=== PATIENT | female | born 1970 | race Caucasian/White ===

== ENCOUNTER 2020-11-10 22:42 | Emergency (ER) | payer OTHER ==
[2020-11-10] MEDS ORDERED: Atropine 0.1 MG/ML 10 ML Syringe ONE ×2 (23:00)
[2020-11-10] MEDS ORDERED: Sodium Bicarbonate 8.4% 50 MEQ/50 ML Syringe ONE ×3 (23:00→23:55)
[2020-11-10] MEDS ORDERED: Norepinephrine 4 MG/4 ML SDV ONE (23:00)
[2020-11-10] MEDS ORDERED: EPINEPHrine 1:10,000 1 MG/10 ML Syringe ONE ×3 (23:00)
[2020-11-10] MEDS ORDERED: 5% Dextrose in Water 250 ML Bag ONE (23:00)
[2020-11-10] MEDS ORDERED: Sodium Chloride 0.9% 10 ML Syringe ONE (23:00)
[2020-11-10] MEDS ORDERED: Succinylcholine 200 MG/10 ML MDV ONE (23:00)
[2020-11-10] MEDS ORDERED: Etomidate 2 MG/ML 20 ML SDV IVPUSH ONE (23:00)
[2020-11-10] MEDS ORDERED: Sodium Chloride 0.9% 10 ML Syringe FLUSH PRN (23:04)
--- NOTE | 2020-11-10 23:06 | EDM.PDOC ---
ED HPI GENERAL MEDICAL PROBLEM - General Chief Complaint: Syncope Stated Complaint: [facility] Time Seen by Provider: 11/10/20 23:03 Source of Information: Reports: Patient, RN Notes Reviewed - History of Present Illness INITIAL COMMENTS - FREE TEXT/NARRATIVE: 49 yr old female brought to ED unresponsive in heart block. Ambulance was initially called to [facility] having had a "seizure, unresponsive and not breathing". Upon their arrival patient was unresponsive, breathing but in apparent heart block with V response in the 20's and 30's. They had applied transthoracic pacer with transthoracic pacing, unclear capture with bentley pulse at time of intial exam on arrival to ED. Pt unresponsive on arrival to ED but breathing spontaneously. No further hx known at time of patient arrival. I did obtain subsequent hx from her . She, her and family are on vacation with primary residence back in [place], [place]. She has hx of "diastolic heart failure" per on multiple medications for that. This was diagnosed about 1 yr ago. She had been feeling fine all day today. They had done some mild hiking enjoying visiting the [facility]. She had been e ating and drinking OK. No reported chest pain, dyspnea, abd pain, nausea or vomiting. She was sitting, had been playing a game with and children when she just suddenly "Passed out" Her hands and arms cliniched in front of her and their was some mild jerking and she than became unresponsive. He imediately called 911, she did not seem to be breathing so he did start CPR. She than was breathing upon EMS arrival. No known seizure hx. No known hx of other medical problems. - Related Data Allergies Allergy/AdvReac Type Severity Reaction Status Date / Time Penicillins Allergy Other Verified 11/11/20 01:47 Home Meds: Home Meds Furosemide [Lasix] 40 mg PO BID 11/11/20 [History] Losartan [Cozaar] 100 mg PO DAILY 11/11/20 [History] Potassium Chloride [Klor-Con M20] 20 meq PO BID 11/11/20 [History] QUEtiapine [SEROquel] 200 mg PO DAILY 11/11/20 [History] Spironolactone [Aldactone] 12.5 mg PO DAILY 11/11/20 [History] carvediloL [Carvedilol] 12.5 mg PO BID 11/11/20 [History] ED ROS GENERAL - Review of Systems Review Of Systems: Unable To Obtain Reason Not Obtained: Altered mental status ED EXAM, GENERAL - Physical Exam Exam: See Below Exam Limited By: Altered Mental Status General Appearance: Other (unresponsive verbally or to pain) Eye Exam: Bilateral Eye: Other (pupils moderately dilated) Ears: Normal External Exam Ear Exam: Bilateral Ear: Auricle Normal Nose: Normal Inspection Throat/Mouth: Normal Inspection Head: Atraumatic Neck: Other (No JVD) Respiratory/Chest: No: Rales, Rhonchi, Wheezing Cardiovascular: Bradycardia GI/Abdominal: No: Distended Extremities: No Pedal Edema. No: Increased Warmth, Redness Neurological: Other (unresponsive to verbal or to pain) Skin Exam: Cool, Other (slight mottling upper chest, nail beds pink, cap refill less than 2 seconds). No: Rash #1 Interpretation EKG Date: 11/10/20 Rhythm: Other (complete heart block) Rate (Beats/Min): 31 QRS: Other (wide complex, q waves inf leads) ST-T: Other (large depressed t waves inf. leads and V4-6) Course - Vital Signs Last Recorded V/S: Last Vital Signs Temp 96.8 F L 11/11/20 01:35 Pulse 10 L 11/11/20 01:35 Resp 10 L 11/11/20 01:35 BP Pulse Ox 66 L 11/11/20 01:35 - Orders/Labs/Meds Orders: Active Orders 24 hr Category Date Time Status Peripheral IV Care [RC] . DIRECTED Care 11/10/20 23:05 Active Chest 1V Frontal [CR] Stat Exams 11/10/20 23:05 Taken Peripheral IV Insertion Adult [OM.PC] Stat Oth 11/10/20 23:05 Ordered Labs: Laboratory Tests 11/10/20 11/10/20 11/10/20 Range/Units 22:52 22:52 22:52 WBC 7.99 (3.98-10.04) K/mm3 RBC 4.58 (3.98-5.22) M/mm3 Hgb 13.6 (11.2-15.7) gm/dl Hct 41.4 (34.1-44.9) % MCV 90.4 (79.4-94.8) fl MCH 29.7 (25.6-32.2) pg MCHC 32.9 (32.2-35.5) g/dl RDW Std Deviation 42.8 (36.4-46.3) fL Plt Count 158 L (182-369) K/mm3 MPV 11.3 (9.4-12.3) fl Neut % (Auto) 43.1 (34.0-71.1) % Lymph % (Auto) 47.7 (19.3-51.7) % [place] % (Auto) 5.9 (4.7-12.5) % Eos % (Auto) 2.4 (0.7-5.8) Baso % (Auto) 0.3 (0.1-1.2) % Neut # (Auto) 3.45 (1.56-6.13) K/mm3 Lymph # (Auto) 3.81 H (1.18-3.74) K/mm3 [place] # (Auto) 0.47 H (0.24-0.36) K/mm3 Eos # (Auto) 0.19 (0.04-0.36) K/mm3 Baso # (Auto) 0.02 (0.01-0.08) K/mm3 PT 11.0 (9.7-12.0) SECONDS INR 1.03 APTT 24.6 (21.7-31.4) SECONDS Puncture Site ABG pH (7.35-7.45) ABG pCO2 (35.0-45.0) mmHg ABG pO2 (80.0-100.0) mmHg ABG HCO3 (22.0-26.0) meq/L ABG O2 Saturation (96.0-97.0) % ABG Base Excess (-2-2.0) A-a Gradient mmHg O2 Delivery Device Oxygen Flow Rate FiO2 (21.00-100.00) % Sodium 145 (136-145) mEq/L Potassium 4.2 (3.5-5.1) mEq/L Chloride 108 H (98-107) mEq/L Carbon Dioxide 18 L (21-32) mEq/L Anion Gap 23.2 H (5-15) BUN 22 H (7-18) mg/dL Creatinine 1.3 H (0.55-1.02) mg/dL Est Cr Clr Drug Dosing TNP Estimated GFR (MDRD) 44 (>60) mL/min BUN/Creatinine Ratio 16.9 (14-18) Glucose 190 H (70-99) mg/dL Lactic Acid (0.4-2.0) mmol/L Calcium 8.6 (8.5-10.1) mg/dL Total Bilirubin 0.5 (0.2-1.0) mg/dL AST 34 (15-37) U/L ALT 34 (14-59) U/L Alkaline Phosphatase 58 (46-116) U/L Troponin I (0.00-0.056) ng/mL Total Protein 7.4 (6.4-8.2) g/dl Albumin 3.9 (3.4-5.0) g/dl Globulin 3.5 gm/dL Albumin/Globulin Ratio 1.1 (1-2) Amylase 61 (25-115) U/L Ethyl Alcohol 0.00 (0.00) gm% 11/10/20 11/10/20 11/11/20 Range/Units 22:52 22:52 00:00 WBC (3.98-10.04) K/mm3 RBC (3.98-5.22) M/mm3 Hgb (11.2-15.7) gm/dl Hct (34.1-44.9) % MCV (79.4-94.8) fl MCH (25.6-32.2) pg MCHC (32.2-35.5) g/dl RDW Std Deviation (36.4-46.3) fL Plt Count (182-369) K/mm3 MPV (9.4-12.3) fl Neut % (Auto) (34.0-71.1) % Lymph % (Auto) (19.3-51.7) % [place] % (Auto) (4.7-12.5) % Eos % (Auto) (0.7-5.8) Baso % (Auto) (0.1-1.2) % Neut # (Auto) (1.56-6.13) K/mm3 Lymph # (Auto) (1.18-3.74) K/mm3 [place] # (Auto) (0.24-0.36) K/mm3 Eos # (Auto) (0.04-0.36) K/mm3 Baso # (Auto) (0.01-0.08) K/mm3 PT (9.7-12.0) SECONDS INR APTT (21.7-31.4) SECONDS Puncture Site Lt radial ABG pH 7.03 L* (7.35-7.45) ABG pCO2 38.8 (35.0-45.0) mmHg ABG pO2 490.0 H* (80.0-100.0) mmHg ABG HCO3 9.8 L (22.0-26.0) meq/L ABG O2 Saturation 99.2 H (96.0-97.0) % ABG Base Excess -20.7 L (-2-2.0) A-a Gradient 174 mmHg O2 Delivery Device Hand ventilated Oxygen Flow Rate 15.0 FiO2 100.00 (21.00-100.00) % Sodium (136-145) mEq/L Potassium (3.5-5.1) mEq/L Chloride (98-107) mEq/L Carbon Dioxide (21-32) mEq/L Anion Gap (5-15) BUN (7-18) mg/dL Creatinine (0.55-1.02) mg/dL Est Cr Clr Drug Dosing Estimated GFR (MDRD) (>60) mL/min BUN/Creatinine Ratio (14-18) Glucose (70-99) mg/dL Lactic Acid 7.5 H* (0.4-2.0) mmol/L Calcium (8.5-10.1) mg/dL Total Bilirubin (0.2-1.0) mg/dL AST (15-37) U/L ALT (14-59) U/L Alkaline Phosphatase (46-116) U/L Troponin I < 0.017 (0.00-0.056) ng/mL Total Protein (6.4-8.2) g/dl Albumin (3.4-5.0) g/dl Globulin gm/dL Albumin/Globulin Ratio (1-2) Amylase (25-115) U/L Ethyl Alcohol (0.00) gm% Meds: Medications Discontinued Medications Generic Name Dose Route Start Last Admin Trade Name Freq PRN Reason Stop Dose Admin Sodium Bicarbonate Confirm 11/10/20 23:55 Sodium Bicarbonate 8.4% 50 Meq/50 Ml Syringe Administered 11/10/20 23:56 Dose 50 meq .ROUTE .STK-MED ONE Sodium Chloride 10 ml 11/10/20 23:04 Sodium Chloride 0.9% 10 Ml Syringe FLUSH ASDIRECTED PRN Keep Vein Open - Re-Assessments/Exams Free Text/Narrative Re-Assessment/Exam: 11/11/20 03:31 As noted patient arrived unresponsive in complete heart block. Medical alert was called on patient arrival. It became apparent that seizure was not the main problem but secondary to cardiac arrest, poor perfusion. Initial pulse check revealed weak femoral pulse less than 30 per minute. Pt was switched over to our pacer pads and pacer. Initially there was some but incomplete capture rate setting of 70, mamp increased up to 120. BP readings and femoral pulse quite variable. This all improved after 2 mg epi IV and multiple doses of atropine IV. Pt was given etomidate, suc. choline and intubated. By this time had asked to have helicopter flight team from [place] called out for transfer to higher level of care and apparent need for cardiac pacer. After intubation and sedation amperage increased clear up to 175 with continued poor inconsistent capture. Pacer pads replaced and L pad repositioned to back with mild improvement but continued inconsistent capture even at 175/70. CXR after intubation shows very mild cardiomegally, mild pulmonary congestion. ABG's after intubation showed p02 490, C02 39, ph 7.03. Pt given 3 doses of NaBicarb 50 meq IV over time. Variable BP readings almost all well above 100 systolic. Labs: WBC 8,000, Hgb 13.6, 145/4.2. C02 18. A gap 23.2. Creat. 1.3. Glucose 190. L acid 7.5. trop normal. Flight team arrived at about 1205 AM, by this time arrangements had been made for transfer to [facility]. Dr Schultz, Critical Care accepting Phys for direct admit to their ICU. The flight team did switch her over to their external pacer and of note appear to have obtained good capture on moniter of their unit. Critical care time of 90 minutes. This included initial evaluation, initiation of transthoracic pacing, ordering of further medications, monitering of response to that and other treatments, ordering of appropriate labs and CXR. Evaluation of labs, ongoing cardiac rythm, ABG's, CXR. Obtaining further medical history from , the making of transfer arrangements, monitering of patient condition and documentation of all of the above. Departure - Departure Time of Disposition: 23:30 Disposition: DC/Tfer to Acute Hospital 02 Reason for Transfer *Q: Other Condition: Critical Clinical Impression: Complete heart block, Cardiac arrest Altered mental status Qualifiers: Altered mental status type: unspecified Qualified Code(s): R41.82 - Altered mental status, unspecified Referrals: PCP,Not In Area [Primary Care Provider] - Forms: ED Department Discharge Sepsis Event Note (ED) - Focused Exam Vital Signs: Vital Signs Temp Pulse Resp Pulse Ox 11/11/20 01:35 96.8 F L 10 L 10 L 66 L - My Orders Last 24 Hours: My Active Orders 11/10/20 23:05 Peripheral IV Care [RC] . DIRECTED Chest 1V Frontal [CR] Stat Peripheral IV Insertion Adult [OM.PC] Stat - Assessment/Plan Last 24 Hours: My Active Orders 11/10/20 23:05 Peripheral IV Care [RC] . DIRECTED Chest 1V Frontal [CR] Stat Peripheral IV Insertion Adult [OM.PC] Stat
--- NOTE | 2020-11-10 23:17 | PCM.SN.2 ---
- Free Text/Narrative Note: 11/10/20 [id number] Patient unresponsive- resp spont assist per RT.patient paced. Dr. Gross requesting intubation. 230 Etomidate 18 mg and Succinylcholine 160 mg IV given by RN. Cricioid pressure. Atraumatic intubation 7.0 ETT at 2303. Teeth and lips as before. Airway clear. No secretions.Positive ET CO2. Equal and bilat eral breath sounds. Secured per RT. O2 Sat after 90s. NG passed left nare to 65 without incident. Marycruz
--- NOTE | 2020-11-11 08:06 | CR ---
Chest: Portable supine view of the chest was obtained. Comparison: No prior chest imaging is available. Endotracheal tube is seen with tip lying at the level of the upper clavicles. Nasogastric tube courses into the stomach off the inferior edge of the film. Heart size and mediastinum are normal. Lungs are clear with no acute parenchymal change. No acute osseous abnormality is appreciated. Impression: 1. Satisfactory position of endotracheal tube and nasogastric tube. 2. Nothing acute is otherwise appreciated on 2 view chest x-ray. Diagnostic code #3
== END 2020-11-11 00:37 ==
LOC: JD.ED 22:42 → EDBD 22:42 → JD.ED 11-11 00:37
DX: I46.9 Cardiac arrest, cause unspecified (principal); I44.2 Atrioventricular block, complete; R41.82 Altered mental status, unspecified; Z88.0 Allergy status to penicillin
CPT/HCPCS: 31500; 36415; 36600; 51702; 71045; 80053; 80307; 82150; 82803; 83605; 84484; 85025; 85610; 85730; 93005; 96374; 96375; 96376; 99291; J0171; J0330; J0461; J3490; J7030; J7060; 93010; 99284; 99292